=== PATIENT | female | born 1985 | race Caucasian/White ===

== ENCOUNTER 2022-04-30 20:18 | Emergency (ER) | payer BC ==
[~2022-04-30] VITALS: Ht 172.7 cm; Wt 120.0 kg
[2022-04-30 20:29] VITALS: BP 126/77
[2022-04-30] MEDS ORDERED: AZIT500T3 MT (21:57)
== END 2022-04-30 22:28 | disposition home or self-care (01) ==
LOC: ER 20:18
DX: J18.9 Pneumonia, unspecified organism (principal); Z68.41 Body mass index [BMI] 40.0-44.9, adult; F41.9 Anxiety disorder, unspecified; Z98.890 Other specified postprocedural states; Z88.0 Allergy status to penicillin
CPT/HCPCS: 71045; 99283